=== PATIENT | male | born 1965 ===

== ENCOUNTER 2018-08-11 22:58 | Emergency (ER) | payer SELFPAY ==
[2018-08-11 23:03] VITALS: BP 136/91; PULSE 101; RESP 16; TEMP 98.2; O2SAT 98
--- NOTE | 2018-08-11 23:24 | C.PDOC ---
History Of Present Illness 53 year old male presents to the ER with a complaint of left toe pain and swelling after a radio fell on his toe while he was picking it up off of a cabinet [employer]. Patient reports it bled it little. Denies weakness or numbness. Time Seen by Provider: 08/11/18 23:07 Chief Complaint (Nursing): Lower Extremity Problem/Injury History Per: Patient History/Exam Limitations: no limitations Onset/Duration Of Symptoms: Mins Recent travel outside of the [place]: No - Ankle/Foot Description Of Injury: Struck With Object Past Medical History Reviewed: Historical Data, Nursing Documentation, Vital Signs Vital Signs: Last Vital Signs Temp 98.2 F 08/11/18 22:59 Pulse 101 H 08/11/18 22:59 Resp 16 08/11/18 22:59 BP 136/91 H 08/11/18 22:59 Pulse Ox 98 08/11/18 22:59 Family History: States: Unknown Family Hx - Social History Hx Alcohol Use: No Hx Substance Use: No Review Of Systems Musculoskeletal: Positive for: Other (Left great toe pain and swelling) Neurological: Negative for: Weakness, Numbness Physical Exam - Physical Exam Appears: Non-toxic Skin: Warm, Dry Head: Atraumatic, Normacephalic Eye(s): bilateral: Normal Inspection Extremity: Normal ROM (x4), Capillary Refill (<2 seconds), Other (Left great toe subungal hematoma over 90% of nail with swelling and ecchymosis of the toe) Pulses: Left Dorsalis Pedis: Normal, Right Dorsalis Pedis: Normal Neurological/Psych: Oriented x3, Normal Speech, Normal Motor, Normal Sensation Gait: Steady ED Course And Treatment O2 Sat by Pulse Oximetry: 98 (Room air) Pulse Ox Interpretation: Normal - Other Rad Left great toe x-ray X-Ray: Interpreted by Me, Viewed By Me Interpretation: + acute transverse fracture of distal phalanx great toe Medical Decision Making Medical Decision Making: Patient offered pain medication but refused. Left great toe x-ray ordered, results showed +fracture. Nail trephination with needle performed, see procedure note. Cast shoe applied by RN. Patient instructed on care and to follow up with podiatry clinic on Tuesday 08/14 Disposition Counseled Patient/Family Regarding: Diagnosis, Need For Followup, Rx Given - Disposition Referrals: [facility] [Outside] Kelley Ovalles DPM [Staff Provider] - Disposition: HOME/ ROUTINE Disposition Time: 00:14 Condition: GOOD Additional Instructions: You have a toe fracture. Take pain medicine as needed. Follow up with podiatry in the clinic on TuesdayAugust 14 If you have insurance you can go to private office You must wear specialized cast shoe at all times Prescriptions: Ibuprofen [Motrin] 600 mg PO Q8 #30 tab traMADol [Ultram] 50 mg PO Q8 PRN #20 tab PRN Reason: Pain, Severe (8-10) Instructions: Toe Fracture (DC) Forms: [employer] ([place]), Work Excuse - POA Present On Arrival: Falls Or Trauma - Clinical Impression Clinical Impression: Fracture of left great toe - PA / VIDEO LIBRARY ASSISTANT / Resident Statement MD/DO has reviewed & agrees with the documentation as recorded. - Scribe Statement The provider has reviewed the documentation as recorded by the Scribe Jaron Montes De Oca All medical record entries made by the Scribe were at my direction and personally dictated by me. I have reviewed the chart and agree that the record accurately reflects my personal performance of the history, physical exam, medical decision making, and the department course for this patient. I have also personally directed, reviewed, and agree with the discharge instructions and disposition. Procedures - Nail Trephination Consent Obtained: Verbal Consent Time Out: No Location (Toes): Left, First Digit Sterile Prep: Betadine Method of Drainage: Needle (19 gauge) Procdure Successful: Yes Patient Tolerated Procedure: Well - Orthopedic Splinting/Casting Injury #1 Side: left Lower Extremity Injury Location: toe Lower Extremity Immobilizer: post-op shoe
--- NOTE | 2018-08-12 17:34 | RAD ---
PROCEDURE: Radiographs of the left great toe. TECHNIQUE:: AP radiograph of the left foot, with oblique and lateral view of the left great toe. COMPARISON: None. FINDINGS: BONES: Acute slightly displaced fracture at the distal phalanx of the big toe JOINTS: Arthritic degenerative changes SOFT TISSUES: Normal. OTHER FINDINGS: None. IMPRESSION: Acute fracture of the distal phalanx left big toe.
== END 2018-08-12 00:37 | disposition home or self-care (01) ==
LOC: C.ER 22:58
DX: S92.422A Displaced fracture of distal phalanx of left great toe, initial encounter for closed fracture (principal); S90.212A Contusion of left great toe with damage to nail, initial encounter; W22.8XXA Striking against or struck by other objects, initial encounter